=== PATIENT | female | born 1955 | race Caucasian/White ===

== ENCOUNTER → 2018-01-29 14:42 | Outpatient (CLI) | payer OTHER, SELFPAY ==
[2018-01-29 14:25] VITALS: BMI 20.1
[2018-01-29 15:12] LABS: Hematocrit 39.5 % (37-47); Hemoglobin 13.1 g/dl (12.0-15.0); Mean Corp Hgb Conc 33.2 g/gl (32-36); Mean Corpuscular Hgb 32.7 pg (27.0-32.0); Mean Corpuscular Volume 98.5 fL (81-99); Mean Platelet Vol. 8.9 fl (6.2-12.0); Platelet Count 217 K/mm3 (150-450); RBC Distribution Width CV 12.8 % (11.6-14.6); RBC Distribution Width SD 46.5 fl (35.1-43.9); Red Blood Count 4.01 M/mm3 (4.2-5.4); White Blood Count 2.9 K/mm3 (4.4-11.0)
[2018-01-29 15:13] LABS: Scan Indicated on CBC? Y/N NO
[2018-01-29 15:45] LABS: BUN 12 mg/dL (7-18); Creatinine, Serum 0.61 mg/dL (0.55-1.02); EST Glomerular Filtration Rate 105 mL/min (>60); Est Glom Filt Rate - Afr Amer 127 mL/min (>60)
--- OUTSIDE RECORDS SUMMARY | 2018-05-03 07:42 | XMS RPT_ITS ---
:1955 Author Organization OHIP Care Team Providers Name Role Phone Cali Varma Attending Unavailable Brian Montaño Referring Unavailable KAROL EVANS Attending Unavailable KAROL EVANS Referring Unavailable Brian Montaño Primary Care Unavailable Cali Varma Attending Unavailable Brian Montaño Referring Unavailable Brian Montaño Primary Care Unavailable PROBLEMS PROBLEMS DATE TYPE CONDITION / CODE ATTENDING STATUS SOURCE 01/29/2018 Unknown G35 - Multiple KAROL EVANS Active [place] sclerosis / Community G35(ICD-10) Hospital Repository 01/29/2018 Unknown R00.1 - Cali Varma Active [place] Bradycardia, Community unspecified / Hospital R00.1(ICD-10) Repository 01/29/2018 Unknown F17.200 - Nicotine Cali Varma Active [place] dependence, Community unspecified, Hospital uncomplicated / Repository F17.200(ICD-10) PROCEDURES PROCEDURES No Procedure Records FoundRESULTS RESULTS CBC-COMPLETE BLOOD CNT Collected: 01/29/2018 Status: F Source: [place] NO DIFF 2:[facility] PM [facility] TYPE CODE TESTS RESULT OUT OF RANGE REFERENCE UNITS LAB L100.1000 4.4-11.0 K/mm3 Low WBC 2.9 LAB L100.1200 4.2-5.4 M/mm3 Low RBC 4.01 LAB L100.1300 12.0-15.0 g/dl Normal HGB 13.1 LAB L100.1400 37-47 % Normal HCT 39.5 LAB L100.1500 81-99 fL Normal MCV 98.5 LAB L100.1600 27.0-32.0 pg High MCH 32.7 LAB L100.1700 32-36 g/gl Normal MCHC 33.2 LAB L100.1810 11.6-14.6 % Normal RDW CV 12.8 LAB L100.1820 35.1-43.9 fl High RDW SD 46.5 LAB L100.1900 150-450 K/mm3 Normal PLT 217 LAB L100.2000 6.2-12.0 fl Normal MPV 8.9 Performed By: #### L100.0500 #### [facility] [address] [place], [address] BUN Collected: 01/29/2018 Status: F Source: [place] 2:50 PM [facility] [place] TYPE CODE TESTS RESULT OUT OF RANGE REFERENCE UNITS LAB L501.1000 7-18 mg/dL Normal BUN 12 Performed By: #### L501.1000, L501.1105 #### [facility] [address] [place], [address] SERUM CREATININE AND Collected: 01/29/2018 Status: F Source: [place] GFR 2:50 PM [facility] [place] TYPE CODE TESTS RESULT OUT OF RANGE REFERENCE UNITS LAB L501.1100 0.55-1.02 mg/dL Normal 0.61 CREAT,SERUM Result Comment: The validity of the calculated GFR AND GFRAA in patients over 70 years has not been determined. Clinical correlation is essential. LAB L501.1110 >60 mL/min Normal EST GFR 105 Result Comment: Non- GFR Calc LAB L501.1115 >60 mL/min Normal EST GFR - AA 127 Result Comment: GFR Calc Performed By: #### L501.1000, L501.1105 #### [facility] [address] [place], [address] CARDIOLOGY VISIT Observed: 01/29/2018 Status: F Source: [place] REPORT 2:35 PM [facility] [address] [place] [address] OFFICE VISIT Date of Service: 01/29/18 MR#: [id number] Acct: [id number] Name: TANYA ANGELO Rep #: [id number] : 1955 Provider: Cali Varma MD Age/Sex: 62/F Location: [facility] Status: Signed HPI HPI Chief Complaint: Routine f/u Details: Details: Ms. Angelo is a very pleasant 62-year-old Nondiabetic female with a history of irritable bowel syndrome, oral herpes infections, bilateral cataract surgery, and multiple sclerosis. Patient also has a 83-[id number]-[id number] smoking history, currently smokes, and drinks around 20 beers per week. Pt was doing fairly well and her neurologist office an EKG was obtained on 11/16/16 which showed sinus bradycardia, left anterior hemiblock, incomplete right bundle branch block. The patient was referred for abnormal EKG. Patient denied any previous coronary disease, denies chest pain, angina, shortness of breath, dyspnea on exertion or change in her exercise capacity. She does have a positive family history of coronary disease in her father who had bypass surgery at age 55. She is currently on baby aspirin. She denies previous CVA or thyroid issues. She denies any presyncope or syncope. She has never been told she had an abnormal EKG. Part of her cardiac workup she will underwent an echocardiogram on 01/17/17 which demonstrated an EF of 65%, RVSP of 23 mmHg. In addition on 01/20/17 she underwent a stress echocardiogram which was negative for inducible ischemia. Patient is now here in follow-up. She denies any exertional chest pain, angina, shortness of breath or dyspnea on exertion. She was successfully able to quit smoking about 6 weeks, and then resumed after a stressful driving episode. She still drinks beer on a regular basis. She smokes about 1 pack of cigarettes per day. She has had no change in her activity level. She had no symptoms during her stress test in January 2017. In our office today her blood pressure is 90/50, and pulse is 68 and regular. Her physical exam demonstrates 2+ carotid upstroke bilaterally, clear lungs bilaterally, regular rate and rhythm, normal S1/S2, no murmurs are noted, no edema noted. Lipids ar EKG dated 11/16/16 shows sinus bradycardia, left anterior hemiblock, incomplete right bundle branch block, no previous myocardial infarction. Intake Vital Signs01/29/18 Height 5 ft 6 in 12/17/18 Weight: 125 lb 01/29/18 Body Mass Index (BMI) 20.1 01/29/18 Blood Pressure 90/50 L Intake Visit Reasons: 7 m fu Clinical Informatics Spec Required: No Is patient in pain?: No Allergies Penicillins Adverse Reaction (Verified 01/29/18 14:25) Unknown Medications aspirin 81 mg tablet,delayed release 81 mg PO QDAY 06/19/17 [History Confirmed 06/19/17] fingolimod 0.25 mg capsule 0.5 mg PO DAILY 01/29/18 [History Confirmed 01/29/18] [facility] Medical History Bradycardia (Chronic) Nicotine dependence (Chronic) Incomplete right bundle branch block (Chronic) Left anterior fascicular block (Chronic) Multiple sclerosis (Chronic) Surgical History History of cataract surgery (Chronic) History of open reduction and internal fixation (ORIF) procedure (Chronic) Family History Father CAD (coronary artery disease) CABG Social History Smoking Status: Heavy Smoker (>10/day) alcohol intake: current alcohol intake frequency: 3 or more drinks per day Alcohol type: beer ROS Const Const: Positive for other (Feels well. Just checks up for MS med d/t bradycardia.); negative for fatigue, weakness, body ache, fever(s), headache(s), chills, frequent falls, night sweats, daytime sleepiness, difficulty sleeping, excessive sweating, weight gain, weight loss, increased appetite, poor appetite or anorexia Eyes Eyes: Negative for blind spots, loss of peripheral vision, transient loss of vision, blurry vision, change in vision, double vision, floaters, tunnel vision or other ENT ENT: Negative for headache(s), dizziness, hearing loss, tinnitus, Nosebleed/epistaxis, balance problems, post nasal drip, lip swelling, tongue swelling, bleeding gums, hoarseness, neck pain, dry mouth or other Cardio Chest Pain: No Palpitations: No Edema: None Muscle aches with walking: None Resp Respiratory: Negative for SOB with activity, SOB at rest, SOB orthopnea\SOB lying down, Coughing up blood/hemoptysis, chest congestion, pain on inspiration, snoring, stridor, wheezing, crackles, paroxysmal nocturnal dyspnea or other GI GI: Negative nausea, vomiting, heartburn, constipation, belching, bloating, cramping, vomiting blood/hematemesis, bright, red blood in stools, black,tarry stools, loose stools, Difficulty Swallowing or other : Negative for hematuria, frequent nighttime urination/ nocturia, erectile dysfunction or abnormal vaginal bleeding Musc Musc: Negative for balance problems, muscle aches/ myalgia, muscle weakness or joint pain Skin Skin: Negative redness, non-healing lesions, rash, unusual bruising, skin ulcer, wounds, jaundice or other Neuro Neuro: Negative for weakness, headache(s), frequent falls, blurry vision, double vision, dizziness, lightheadedness, near syncope, syncope, orthostatic symptoms, confusion, memory loss, restless legs, vertigo, seizures, lack of coordination or other Paulo Hematologic/Lymphatic: Negative for easy bleeding, easy bruising, enlarged lymph nodes or other Endo Endo: Negative for fatigue, excessive sweating, cold intolerance, heat intolerance, flushing, increased thirst/drinking, increased hunger, hair loss, hair growth or other Psych Psych: Negative for anxiety, depression, thoughts of harming anyone, thoughts of harming yourself, visual hallucinations, panic attacks or audible hallucinations Allergy Allergy/Immunology: Negative for lip swelling, Negative for tongue swelling, Negative for rash, Negative for throat swelling, Negative for hives Cardiology Exam Const Appearance: cooperative, healthy appearing and no acute distress Nutritional Appearance: well nourished Orientation: alert, oriented x3 and oriented to person Head Head: normal to inspection, atraumatic and normocephalic Nose: external nose normal Face and Sinus: face symmetric Mouth: oral mucosae normal Eyes General: appearance normal, both eyes and all related structures Eyelids: eyelids normal Conjunctivae: conjunctivae normal Pupils: PERRL and normal by confrontation EOM: EOM intact bilaterally Neck Neck: normal visual inspection and full ROM Carotids: normal carotid upstroke Chest Chest inspection: normal inspection of the chest Auscultation: Bilateral: Clear to Auscultation Cardio Palpation: normal PMI Rate: regular rate Rhythm: regular rhythm Heart sounds: S1 normal and S2 normal GI GI: normal to inspection, no hepatosplenomegaly and bowel sounds present Neuro General: alert, oriented x3, awake, CN's II-XI intact bilaterally and moves all extremities Skin Skin: no rashes or lesions noted Extremities Pulses: Normal: Right Femoral Pulse, Left Femoral Pulse, Right Dorsalis Pedis Pulse, Left Dorsalis Pedis Pulse, Right Posterior Tibial Pulse, Left Posterior Tibial Pulse, Right Radial Pulse, Left Radial Pulse Lower Extremity Edema: None: Bilateral Psych Psychological: normal affect Assessment AND Plan 1. Bradycardia R00.1 Plan 1. Bradycardia: The patient has no symptoms of her bradycardia, and is on no rate limiting medications. She is asymptomatic at this time. Recommend that she continue to exercise as best she can. She is somewhat limited due to her MS, but is fairly functional. 2. Nicotine dependence F17.200 Plan 2. Tobacco cessation: The patient successfully quit smoking for about 6 weeks and then restarted. I advised the patient that she should try nicotine patch to assist with her tobacco cessation, and that she cease smoking altogether. Also advised her that she may have to change her habits particularly with her drinking beer on a regular basis which may trigger her to smoke. Patient voiced understanding and agrees to proceed. 3. Return office in 6 months. This note was generated using a voice recognition system and there may be incorrect words, spelling or punctuation that were not noted when reviewing the office note prior to saving. Plan Detail Follow Up +6M (Kojo) Coding Level of Care Code Off vis,est,level 3 Diagnoses Bradycardia R00.1 Nicotine dependence F17.200 Coding Level of Care Code Off vis,est,level 3 Diagnoses Bradycardia R00.1 Nicotine dependence F17.200 01/29/18 1435 <Electronically signed by Cali Varma MD> Date Cali Varma MD Cosign Signature: Date (if applicable) CC: Brian Montaño MD CARDIOLOGY VISIT Observed: 06/20/2017 Status: F Source: [place] REPORT 1:13 PM [facility] [place] [address] [place] [address] OFFICE VISIT Date of Service: 06/20/17 MR#: [id number] Acct: [id number] Name: TANYA ANGELO Rep #: [id number] : 1955 Provider: Cali Varma MD Age/Sex: 61/F Location: [facility] Status: Signed HPI HPI Chief Complaint: Routine f/u Details: Ms. Angelo is a very pleasant 61-year-old Nondiabetic female with a history of irritable bowel syndrome, oral herpes infections, bilateral cataract surgery, and multiple sclerosis. Patient also has a 63-xrzs-ehfd smoking history, currently smokes, and drinks around 20 beers per week. Pt was doing fairly well and her neurologist office an EKG was obtained on 11/16/16 which showed sinus bradycardia, left anterior hemiblock, incomplete right bundle branch block. The patient was referred for abnormal EKG. Patient denies any previous coronary disease, denies chest pain, angina, shortness of breath, dyspnea on exertion or change in her exercise capacity. She does have a positive family history of coronary disease in her father who had bypass surgery at age 55. She is currently on baby aspirin. She denies previous CVA or thyroid issues. She denies any presyncope or syncope. She has never been told she had an abnormal EKG. Part of her cardiac workup she will underwent an echocardiogram on 01/17/17 which demonstrated an EF of 65%, RVSP of 23 mmHg. In addition on 01/20/17 she underwent a stress echocardiogram which was negative for inducible ischemia. Patient is now here in follow-up. Patient is now here in follow-up. She denies any exertional chest pain, angina, shortness of breath or dyspnea on exertion. She occasionally gets atypical nonexertional chest discomfort when she is sitting at rest, but never with exertion. She attributes this to anxiety with having to work on a big project. She has had no change in her activity level. She had no symptoms during her stress test in January 2017. In our office today her blood pressure is 92/60, and pulse is 64 and regular. Her physl exam demonstrates 2+ carotid upstroke bilaterally, clear lungs bilaterally, regular rate and rhythm, normal S1/S2, no murmurs are noted, no edema noted. Lipids ar EKG dated 11/16/16 shows sinus bradycardia, left anterior hemiblock, incomplete right bundle branch block, no previous myocardial infarction. Intake Vital Signs06/20/17 Height 5 ft 6 in 06/20/17 Weight: 132 lb 06/20/17 Body Mass Index (BMI) 21.3 06/20/17 Blood Pressure 92/60 06/20/17 Respiratory Rate 16 06/20/17 Pulse Rate 64 Intake Visit Reasons: 6 M FU Allergies Penicillins Adverse Reaction (Verified 06/20/17 12:52) Unknown Medications aspirin 81 mg tablet,delayed release 81 mg PO QDAY 06/19/17 [History Confirmed 06/19/17] [facility] Medical History Bradycardia (Chronic) Nicotine dependence (Chronic) Incomplete right bundle branch block (Chronic) Left anterior fascicular block (Chronic) Multiple sclerosis (Chronic) Surgical History History of cataract surgery (Chronic) History of open reduction and internal fixation (ORIF) procedure (Chronic) Family History Father CAD (coronary artery disease) CABG Social History Smoking Status: Heavy Smoker (>10/day) alcohol intake: current alcohol intake frequency: 3 or more drinks per day Alcohol type: beer ROS Const Const: Negative for fatigue, difficulty sleeping, excessive sweating, weakness, frequent falls or headache(s) Eyes Eyes: Negative for loss of peripheral vision, transient loss of vision, blurry vision or double vision ENT ENT: Negative for Nosebleed/epistaxis, balance problems, headache(s) or dizziness Cardio Chest Pain: No Edema: None Muscle aches with walking: None Resp Respiratory: Negative for SOB with activity, SOB at rest, SOB orthopnea\SOB lying down or paroxysmal nocturnal dyspnea GI GI: Negative nausea or heartburn : Negative for hematuria Musc Musc: Negative for muscle aches/ myalgia, muscle weakness, joint pain or balance problems Skin Skin: Negative non-healing lesions, unusual bruising or rash Neuro Neuro: Positive for lack of coordination (poor gait); negative for weakness, frequent falls, blurry vision, headache(s), dizziness, lightheadedness, orthostatic symptoms or double vision Paulo Hematologic/Lymphatic: Negative for easy bruising Endo Endo: Negative for fatigue, excessive sweating or increased thirst/drinking Psych Psych: Negative for anxiety or depression Allergy Allergy/Immunology: Negative for hives, Negative for rash Cardiology Exam Const Appearance: cooperative, healthy appearing and no acute distress Nutritional Appearance: well nourished Orientation: alert, oriented x3 and oriented to person Head Head: normal to inspection, atraumatic and normocephalic Nose: external nose normal Face and Sinus: face symmetric Mouth: oral mucosae normal Eyes General: appearance normal, both eyes and all related structures Eyelids: eyelids normal Conjunctivae: conjunctivae normal Pupils: PERRL and normal by confrontation EOM: EOM intact bilaterally Neck Neck: normal visual inspection and full ROM Carotids: normal carotid upstroke Chest Chest inspection: normal inspection of the chest Auscultation: Bilateral: Clear to Auscultation Cardio Palpation: normal PMI Rate: regular rate Rhythm: regular rhythm Heart sounds: S1 normal and S2 normal GI GI: normal to inspection, no hepatosplenomegaly and bowel sounds present Neuro General: alert, oriented x3, awake, CN's II-XI intact bilaterally and moves all extremities Skin Skin: no rashes or lesions noted Extremities Pulses: Normal: Right Femoral Pulse, Left Femoral Pulse, Right Dorsalis Pedis Pulse, Left Dorsalis Pedis Pulse, Right Posterior Tibial Pulse, Left Posterior Tibial Pulse, Right Radial Pulse, Left Radial Pulse Lower Extremity Edema: None: Bilateral Psych Psychological: normal affect Assessment AND Plan 1. Bradycardia R00.1 Plan 1. Bradycardia: Patient's heart rate is above 60 bpm today. Her symptoms are atypical for angina, and her cardiac workup is thus far been negative. She continues on baby aspirin without difficulty. Her chest pain symptoms appear to be nonexertional and do not appear to be anginal in nature. I believe it is reasonable to proceed with her new multiple sclerosis drug if indicated. I have advised the patient that should her symptoms evolve into exertional symptoms that she should let us know right away and we can proceed with left heart catheterization. 2. Return office in 6 months. This note was generated using a voice recognition system and there may be incorrect words, spelling or punctuation that were not noted when reviewing the office note prior to saving. Plan Detail Follow Up +6m (Varma) Coding Level of Care Code Off vis,est,level 3 Diagnoses Bradycardia R00.1 Coding Level of Care Code Off vis,est,level 3 Diagnoses Bradycardia R00.1 06/20/17 1313 <Electronically signed by Cali Varma MD> Date Cali Varma MD Cosigner Signature: Date (if applicable) CC: Brian Montaño MD ALLERGIES ALLERGIES DATE TYPE / CODE NAME / CODE REACTION SEVERITY SOURCE 01/29/2018 Drug Penicillins/ Unknown Unknown [facility] Allergy/4160 [id number]( Hospital 80942(SNOMED XNORM) Repository CT) ENCOUNTERS ENCOUNTERS ADMIT/DISCHARGE ACCOUNT ADMITTING ENCOUNTER LOCATION SOURCE NUMBER CLASS 01/29/2018 [id number] Ambulatory [place] [address] [facility] ing:LAB Repository 01/29/2018/ [id number] Ambulatory BMSBuilding:B [place] 8 2 [place] Repository 06/20/2017/ [id number] Ambulatory BMSBuilding:B [place] 8 6 [facility] Repository PAYERS PAYERS ENCOUNTER GUARANTOR PAYER SUBSCRIBER SOURCE 01/29/2018 TANYA [facility] Primary TANYA CATESDOB: [place], Insurance:CARESOURCE [id number] [address]Vpa: [facility][note 3] Number: Repository () [id number] Date:[id number] [address]QE: 01/29/2018 Secondary NOT GIVENUNK [place] Insurance:SELF PAY [facility] Number: Effective Repository Date:2018-01-29 01/29/2018 TANYA [facility] Box Primary TANYA CATESDOB: [place] [address] [place] [address], Insurance:CARESOURCEP [id number] [address]Ovu: olicy Number: [facility] [id number] Repository (HP) Date:2017-06-20[address]ATTN: [place] [address]DN: 01/29/2018 Secondary NOT GIVENUNK [place] Insurance:SELF PAY [facility]: Effective Repository Date:2018-01-29 06/20/2017 TANYA GRETCHEN Box [facility] [place] [address] [place] [address], Insurance:CARESOURCEP [id number] [facility] [address]Lbu: olicy Number: [facility] [id number] Repository (HP) Date:2017-01-23 [address]ATTN: [place] [address]EB: 06/20/2017 Secondary NOT GIVENUNK [place] Insurance:SELF PAY [facility] Number: Effective Repository Date:2017-06-09
== END ==
DX: G35 Multiple sclerosis (principal)
CPT/HCPCS: 36415; 82565; 84520; 85027

== ENCOUNTER → 2018-05-25 09:48 | Outpatient (CLI) | payer OTHER, SELFPAY ==
[2018-01-29 14:25] VITALS: BMI 20.1
--- NOTE | 2018-05-25 10:41 | MRI_ITS ---
STUDY: MRI BRAIN WITH AND WITHOUT CONTRAST REASON FOR EXAM: Female, 62 years old. MS progression TECHNIQUE: Standardized multiplanar fat and water weighted pulse sequences were obtained. 11 IV Dotarem was administered for the contrast portion of the examination. COMPARISON: 01/06/2016 FINDINGS: Normal size of the ventricles and extra-axial spaces for the patient's age. Multiple T2 hyperintense white matter lesions are present involving the bilateral cerebral hemispheres. All pre-existing lesions are unchanged and are approximately 9 in number. 3 new periventricular lesions are present measuring 7 mm on the left on image 16 of series 7, 6 mm on the left on image 14, and 6 mm on the right on image 15. Of note, none of the white matter lesions are associated with restricted diffusion or abnormal enhancement. Normal bilateral basal ganglia. Normal thalami. There is no extra-axial fluid accumulation. Normal flow voids within the major intracranial circulation suggesting patency by spin echo criteria. Normal venous enhancement. There is no enhancing intra-axial or extra-axial abnormality. Normal sella turcica, pituitary gland, infundibular stalk, optic chiasm and hypothalamus. Normal tectal plate and pineal gland. Normal midbrain, mathieu and medulla. Normal cerebellum. Normal basal cisterns. Normal bilateral temporal bones. Normal bilateral internal auditory canals. There are bilateral ocular lens implants with otherwise normal intraorbital contents. Normal visualized paranasal sinuses. Normal calvarium and skull base. Normal visualized soft tissue structures. Normal visualized upper cervical spine. MRI/Brain W/WO Contrast IMPRESSION: All pre-existing white matter lesions are stable, and are approximately 9 in number. Since prior exam, 3 new subcentimeter periventricular white matter lesions are noted. None of the white matter lesions are associated with restricted diffusion or abnormal enhancement. Electronically Signed: Ray Knox MD at 16:40 EDT Tel , Service support ,
[2018-05-25 10:45] LABS: BUN 12 mg/dL (7-18); Creatinine, Serum 0.66 mg/dL (0.55-1.02); EST Glomerular Filtration Rate 96 mL/min (>60); Est Glom Filt Rate - Afr Amer 116 mL/min (>60)
== END ==
DX: G35 Multiple sclerosis (principal)
CPT/HCPCS: 36415; 70553; 82565; 84520; A9575

== ENCOUNTER → 2018-09-19 13:49 | Outpatient (CLI) | payer OTHER, SELFPAY ==
[2018-01-29 14:25] VITALS: BMI 20.1
[2018-09-19 14:03] VITALS: BP 92/55; PULSE 69; RESP 18; TEMP 36.4; O2SAT 100; BMI 19.7
== END ==
PROVIDERS: Referring Provider Psychiatry & Neurology Neurology; Visit Provider Psychiatry & Neurology Neurology
DX: G35 Multiple sclerosis (principal)
CPT/HCPCS: 96365; 96366; J7050; A4216; J2930

== ENCOUNTER → 2018-09-20 11:23 | Outpatient (CLI) | payer OTHER, SELFPAY ==
[2018-01-29 14:25] VITALS: BMI 20.1
[2018-09-20 09:58] VITALS: BMI 19.7
[2018-09-20 11:41] VITALS: BP 81/46; PULSE 62; RESP 16; TEMP 36.7; BMI 19.7
== END ==
PROVIDERS: Referring Provider Psychiatry & Neurology Neurology; Visit Provider Psychiatry & Neurology Neurology
DX: G35 Multiple sclerosis (principal)
CPT/HCPCS: 96365; J7050; A4216; J2930

== ENCOUNTER → 2018-09-21 13:59 | Outpatient (CLI) | payer OTHER, SELFPAY ==
[2018-01-29 14:25] VITALS: BMI 20.1
[2018-09-20 11:41] VITALS: BMI 19.7
[2018-09-21 14:30] VITALS: BP 102/56; PULSE 63; RESP 16; TEMP 36.3; O2SAT 97; BMI 19.7
== END ==
PROVIDERS: Referring Provider Psychiatry & Neurology Neurology; Visit Provider Psychiatry & Neurology Neurology
DX: G35 Multiple sclerosis (principal)
CPT/HCPCS: 96365; J7050; A4216; J2930

== ENCOUNTER → 2018-10-18 09:26 | Outpatient (CLI) | payer OTHER, SELFPAY ==
[2018-09-21 14:30] VITALS: BMI 19.7
--- NOTE | 2018-10-18 09:28 | STE_ITS ---
Reason For Study: Chest Pain Stress Results Protocol: Arash Protocol Maximum Predicted HR: 158 bpm Target HR: 134 bpm % Maximum Predicted HR: 83 % DurationHeart Rate Stage (mm:ss) (bpm) BP Comment Baseline 66 110/60No Chest Pain Arash Protocol Stage I 3:00 105 118/62No Chest Pain; Mild Dyspnea Arash Protocol Stage II 3:00 118 136/70No Chest Pain; Moderate Dyspnea Arash Protocol Stage III 0:12 131 / No Chest Pain; Moderate Dyspnea Recovery 81 118/62No Chest Pain Stress Duration: 6:12 mm:ss Maximum Stress HR: 131 bpm METS: 7 Baseline Echocardiogram Findings The estimated ejection fraction is 65 %. Stress Echo Wall motion Data Resting WM Intermediate WM Stress WM Resting Wall Motion Wall Motion Stress No regional wall motion No regional wall motion abnormalities noted. abnormalities noted. EKG Data The baseline ECG displays normal sinus rhythm. The patient exercised according to the regular Arash protocol for a total duration of 6:12. The maximum heart rate attained was 190 beats per minute. This was 120% of maximum predicted heart rate. The patient exercised into stage 3 of the Arash protocol. During stress, there were no ST or T wave changes noted to suggest ischemia. No clinical angina was noted. Interpretation Summary The estimated ejection fraction is 65 %. Normal, adequate, treadmill echocardiogram. Negative for ischemia by EKG and echocardiographic criteria. No anginal symptoms noted. Rare PVCs noted. Appropriate blood pressure response to exercise. Average exercise capacity for age. Test terminated due to fatigue. Final LVEF is 75%. No complications. Ordering Physician: Cali Varma Referring Physician: Brian Montaño Performed By: Zina Molina RDCS
[2018-10-18 12:01] LABS: AST(SGOT) 18 U/L (15-37); Alanine Aminotransfer ALT/SGPT 27 U/L (13-56); Albumin, Serum 4.2 g/dL (3.2-5.0); Alkaline Phosphatase 107 U/L (45-117); Bilirubin, Direct 0.15 mg/dL (0.00-0.30); Cholesterol 191 mg/dL (200); Globulin 3.7 g/dL (2.2-4.2); High Density Lipoprotein 99 mg/dL; Protein, Total 7.9 g/dL (6.4-8.2); Triglycerides 78 mg/dL; Very Low Density Lipoprotein 16 mg/dL (5-40)
== END ==
PROVIDERS: Referring Provider Internal Medicine Cardiovascular Disease; Visit Provider Internal Medicine Cardiovascular Disease
DX: R07.9 Chest pain, unspecified (principal); E78.00 Pure hypercholesterolemia, unspecified
CPT/HCPCS: 36415; 80061; 80076; 93017; 93350